=== PATIENT | female | born 1990 | race Asian ===

== ENCOUNTER 2024-05-04 07:54 | Emergency (ER) | payer MEDICAID ==
[~2024-05-04] VITALS: Ht 165.1 cm; Wt 75.0 kg
[2024-05-04 08:05] VITALS: BP 105/50; TEMP 98; O2SAT 99
[2024-05-04 08:16] VITALS: PULSE 82; RESP 18
== END 2024-05-04 10:00 | disposition home or self-care (01) ==
LOC: ER 08:00
DX: S61.411D Laceration without foreign body of right hand, subsequent encounter (principal); Z48.00 Encounter for change or removal of nonsurgical wound dressing; X58.XXXD Exposure to other specified factors, subsequent encounter
CPT/HCPCS: 99281